=== PATIENT | male | born 1950 | race African-American/Black ===

== ENCOUNTER 2016-12-31 03:01 | Inpatient (IN) | payer OTHER ==
[~2016-12-31] VITALS: Ht 185.4 cm; Wt 67.5 kg
[~2016-12-31 03:01] MED LIST: ADV250 IH; ALBU8.5H3 IH; CALC600T95 PO; CARV3 PO; ENAL5 PO; FAMO20 PO; FISH1CAP8 PO; IBUP200C93 PO; OMEP20 PO; PRAV20TA4 PO; PRED5 PO
[2016-12-31] MEDS ORDERED: MethylPREDNISolone SOD SUCC 125 MG/2 ML VIAL IVP ONE (03:15)
[2016-12-31] MEDS ORDERED: ACETAMINOPHEN 500 MG TABLET PO ONE (03:15)
[2016-12-31 03:25] LABS: BASOPHILS % (AUTO) 0.8 % (0.0-2.0); EOSINOPHILS % (AUTO) 5.7 % (1.0-6.0); HEMATOCRIT 40.7 % (41-53); LYMPHOCYTES # (AUTO) 2.1 K/uL (1.0-4.8); LYMPHOCYTES % (AUTO) 34.9 % (22.0-44.0); MEAN CORPUSCULAR HEMOGLOBIN 29.4 pg (26.0-34.0); MEAN CORPUSCULAR VOLUME 92 fL (80-100); MONOCYTES # (AUTO) 0.7 K/uL (0.1-1.0); MONOCYTES % (AUTO) 11.6 % (2.0-9.0); NEUTROPHILS # (AUTO) 2.8 K/uL (1.8-7.7); PLATELET COUNT (AUTO) 239 K/uL (150-450); RED BLOOD CELL COUNT(AUTO) 4.42 MIL/uL (4.50-5.90); RED CELL DISTRIBUTION WIDTH 14.9 % (11.5-14.5); WHITE BLOOD COUNT (AUTO) 5.9 K/uL (4.5-11.0)
[2016-12-31 03:39] LABS: ANION GAP 7 mmol/L (8-16); CALCIUM, TOTAL 8.6 mg/dL (8.8-10.5); CARBON DIOXIDE 31 mmol/L (22-29); CHLORIDE 104 mmol/L (98-107); CREATININE 1.29 mg/dL (0.60-1.30); GLOMERULAR FILTR. RATE CALC > 60 mL/min (>60); POTASSIUM 3.6 mmol/L (3.5-5.1); SODIUM SERUM 142 mmol/L (136-145); UREA NITROGEN, BLOOD 16 mg/dL (7-18)
[2016-12-31 03:43] LABS: B-TYPE NATRIURETIC PEPTIDE 6 pg/mL (0-100)
[2016-12-31] MEDS ORDERED: ALBUTEROL SULFATE 2.5 MG/0.5 ML NEB SOLUTION NEB ONE (03:45)
[2016-12-31] MEDS ORDERED: IPRATROPIUM BROMIDE 0.5 MG/2.5 ML NEB SOLUTION NEB ONE (03:45)
[2016-12-31] MEDS ORDERED: 0.9% SODIUM CHLORIDE 5 ML NEB SOLUTION NEB ONE (03:47)
[2016-12-31 04:05] LABS: ALANINE AMINOTRANSFERASE 30 U/L (12-78); ALBUMIN 3.4 g/dL (3.4-5.0); ASPARTATE AMINOTRANSFERASE 33 U/L (15-37); BILIRUBIN,TOTAL 0.3 mg/dL (0.1-1.0); CREATINE KINASE MB 6.1 ng/mL (0-5); CREATINE KINASE, TOTAL 278 U/L (39-308); TOTAL PROTEIN, SERUM 7.1 g/dL (6.4-8.2)
[2016-12-31 04:30] LABS: INFLUENZA TYPE B NEGATIVE FOR TYPE B (NEGATIVE)
[2016-12-31] MEDS ORDERED: NITROGLYCERIN 2% (1 GM=INCH) PACKET TP ONE (04:30)
[2016-12-31] MEDS ORDERED: ASPIRIN 81 MG CHEWABLE TABLET PO ONE (04:30)
[2016-12-31] MEDS ORDERED: CefTRIAXone 1 GM/DEXTROSE 50 ML IV ONE (05:00)
[2016-12-31] MEDS ORDERED: AZITHROMYCIN 500 MG/NS 250 ML IV ONE (05:00)
[2016-12-31 08:20] VITALS: BP 119/92
[2016-12-31 11:57] VITALS: BP 116/88
[2016-12-31] MEDS ORDERED: PredniSONE 5 MG TABLET PO SCH (12:00)
[2016-12-31] MEDS ORDERED: ALBUTEROL SULFATE 2.5 MG/0.5 ML NEB SOLUTION NEB PRN (12:15)
[2016-12-31] MEDS ORDERED: IPRATROPIUM BROMIDE 0.5 MG/2.5 ML NEB SOLUTION NEB PRN (12:15)
[2016-12-31] MEDS: ENALAPRIL MALEATE 5 MG TABLET PO SCH (14:06)
[2016-12-31] MEDS: FISH OIL/OMEGA-3 FATTY ACIDS 500 MG CAPSULE PO SCH (14:06)
[2016-12-31] MEDS: ASPIRIN 81 MG CHEWABLE TABLET PO SCH (14:06)
[2016-12-31] MEDS: NITROGLYCERIN 2% (1 GM=INCH) PACKET TP SCH ×2 (14:07→18:55)
[2016-12-31] MEDS: PRAVASTATIN SODIUM 20 MG TABLET PO SCH (14:07)
[2016-12-31] MEDS: FAMOTIDINE 20 MG TABLET PO SCH (14:07)
[2016-12-31] MEDS: CARVEDILOL 3.125 MG TABLET PO SCH ×2 (14:07→21:00)
[2016-12-31] MEDS: IPRATROPIUM BROMIDE 0.5 MG/2.5 ML NEB SOLUTION NEB SCH ×2 (14:19→19:32)
[2016-12-31] MEDS: ALBUTEROL SULFATE 2.5 MG/0.5 ML NEB SOLUTION NEB SCH ×2 (14:20→19:32)
[2016-12-31 15:38] VITALS: BP 101/67
[2016-12-31] MEDS: MethylPREDNISolone SOD SUCC 125 MG/2 ML VIAL IVP SCH (16:40)
[2016-12-31 19:31] VITALS: BP 96/61
[2016-12-31 23:29] VITALS: BP 98/56
[2017-01-01] MEDS: MethylPREDNISolone SOD SUCC 125 MG/2 ML VIAL IVP SCH ×2 (00:14→08:29)
[2017-01-01] MEDS: ALBUTEROL SULFATE 2.5 MG/0.5 ML NEB SOLUTION NEB SCH ×4 (02:16→14:20)
[2017-01-01] MEDS: IPRATROPIUM BROMIDE 0.5 MG/2.5 ML NEB SOLUTION NEB SCH ×4 (02:16→14:20)
[2017-01-01 04:29] VITALS: BP 118/75
[2017-01-01] MEDS: NITROGLYCERIN 2% (1 GM=INCH) PACKET TP SCH ×3 (05:49→12:39)
[2017-01-01 07:19] VITALS: BP 117/62
[2017-01-01] MEDS: FISH OIL/OMEGA-3 FATTY ACIDS 500 MG CAPSULE PO SCH (08:28)
[2017-01-01] MEDS: CARVEDILOL 3.125 MG TABLET PO SCH (08:29)
[2017-01-01] MEDS: FAMOTIDINE 20 MG TABLET PO SCH (08:29)
[2017-01-01] MEDS: ENALAPRIL MALEATE 5 MG TABLET PO SCH (08:29)
[2017-01-01] MEDS: ASPIRIN 81 MG CHEWABLE TABLET PO SCH (08:29)
[2017-01-01] MEDS: PRAVASTATIN SODIUM 20 MG TABLET PO SCH (08:29)
[2017-01-01 11:03] VITALS: BP 130/68
[2017-01-01] MEDS ORDERED: PRED20 PO (14:04)
== END 2017-01-01 14:30 | disposition home or self-care (01) | DRG 140 ==
LOC: EMS 03:02 → 5N 05:44
PROVIDERS: ADMIT Internal Medicine; ATTEND Internal Medicine
DX: J44.1 Chronic obstructive pulmonary disease with (acute) exacerbation (principal); I11.0 Hypertensive heart disease with heart failure; Z86.74 Personal history of sudden cardiac arrest; I50.32 Chronic diastolic (congestive) heart failure; K21.9 Gastro-esophageal reflux disease without esophagitis; D64.9 Anemia, unspecified; F17.210 Nicotine dependence, cigarettes, uncomplicated; R07.9 Chest pain, unspecified; J45.909 Unspecified asthma, uncomplicated; I25.10 Atherosclerotic heart disease of native coronary artery without angina pectoris; I25.2 Old myocardial infarction; Z95.5 Presence of coronary angioplasty implant and graft; Z91.018 Allergy to other foods; Z79.899 Other long term (current) drug therapy; Z79.51 Long term (current) use of inhaled steroids; Z79.1 Long term (current) use of non-steroidal anti-inflammatories (NSAID); Z71.6 Tobacco abuse counseling
CPT/HCPCS: 87040; 87804; 93005; 93306; 94640; 96365; 96368; 96375; 99285; 99406; J0456; J0696; J2930

== ENCOUNTER 2017-01-28 17:38 | Emergency (ER) | payer OTHER ==
[~2017-01-28] VITALS: Ht 193 cm; Wt 63.6 kg
[~2017-01-28 17:38] MED LIST changes: +PRED20 PO; -PRED5 PO
[2017-01-28] MEDS ORDERED: ALBUTEROL SULFATE 5 MG/ML 20 ML NEB SOLN [BULK] NEB ONE (18:10)
[2017-01-28] MEDS ORDERED: MethylPREDNISolone SOD SUCC 125 MG/2 ML VIAL IVP ONE (18:15)
[2017-01-28] MEDS ORDERED: IPRATROPIUM BROMIDE 0.5 MG/2.5 ML NEB SOLUTION NEB ONE (18:15)
[2017-01-28 18:23] LABS: HEMATOCRIT 41.7 % (41-53); HEMOGLOBIN 13.3 g/dL (13.5-17.5); MEAN CORPUSCULAR HGB CONC 31.8 G/dL (31.0-37.0); MEAN CORPUSCULAR VOLUME 91 fL (80-100); PLATELET COUNT (AUTO) 436 K/uL (150-450); RED BLOOD CELL COUNT(AUTO) 4.58 MIL/uL (4.50-5.90); RED CELL DISTRIBUTION WIDTH 15.1 % (11.5-14.5); WHITE BLOOD COUNT (AUTO) 3.9 K/uL (4.5-11.0)
[2017-01-28 18:29] LABS: ANION GAP 6 mmol/L (8-16); CALCIUM, TOTAL 8.5 mg/dL (8.8-10.5); CARBON DIOXIDE 33 mmol/L (22-29); CHLORIDE 105 mmol/L (98-107); CREATININE 1.33 mg/dL (0.60-1.30); GLOMERULAR FILTR. RATE CALC > 60 mL/min (>60); POTASSIUM 3.7 mmol/L (3.5-5.1); SODIUM SERUM 144 mmol/L (136-145); UREA NITROGEN, BLOOD 13 mg/dL (7-18)
[2017-01-28 18:33] LABS: PROTHROMBIN TIME 10.7 SEC (9.4-11.6)
[2017-01-28 18:52] LABS: BASOPHILS % (MANUAL) 1 % (0-2); EOSINOPHILS % (MANUAL) 15 % (1-6); LYMPHOCYTES % (MANUAL) 44 % (22-44); REACTIVE LYMPHOCYTES 3 % (0-0); TOTAL CELLS COUNTED 100
[2017-01-28 18:53] LABS: RBC MORPHOLOGY COMMENT ABNORMAL RBC MORPH
[2017-01-28 18:55] LABS: ALANINE AMINOTRANSFERASE 28 U/L (12-78); ALBUMIN 3.3 g/dL (3.4-5.0); ASPARTATE AMINOTRANSFERASE 27 U/L (15-37); BILIRUBIN,TOTAL 0.3 mg/dL (0.1-1.0); CREATINE KINASE MB 3.6 ng/mL (0-5); CREATINE KINASE, TOTAL 157 U/L (39-308); TOTAL PROTEIN, SERUM 7.1 g/dL (6.4-8.2)
[2017-01-28 18:56] LABS: B-TYPE NATRIURETIC PEPTIDE 9 pg/mL (0-100)
[2017-01-28] MEDS ORDERED: 0.9% SODIUM CHLORIDE 15 ML NEB SOLUTION NEB ONE (19:20)
[2017-01-28 20:08] VITALS: BP 118/70
== END 2017-01-28 20:38 | disposition home or self-care (01) ==
LOC: EMS 17:39
DX: J44.9 Chronic obstructive pulmonary disease, unspecified (principal); J45.909 Unspecified asthma, uncomplicated; I25.10 Atherosclerotic heart disease of native coronary artery without angina pectoris; I25.2 Old myocardial infarction; I10 Essential (primary) hypertension; F17.210 Nicotine dependence, cigarettes, uncomplicated; Z91.018 Allergy to other foods
CPT/HCPCS: 71010; 80053; 82550; 82553; 83880; 84484; 85025; 85610; 85730; 93005; 94644; 96374; 99285; J2930; J7611

== ENCOUNTER 2017-03-09 02:23 | Inpatient (IN) | payer MEDICARE, OTHER ==
[~2017-03-09] VITALS: Ht 193 cm; Wt 55.4 kg
[2017-03-09] MEDS ORDERED: ALBUTEROL SULFATE 5 MG/ML 20 ML NEB SOLN [BULK] NEB ONE (02:30)
[2017-03-09] MEDS ORDERED: CefTRIAXone 1 GM/DEXTROSE 50 ML IV ONE (02:30)
[2017-03-09] MEDS ORDERED: MethylPREDNISolone SOD SUCC 125 MG/2 ML VIAL IVP ONE (02:30)
[2017-03-09] MEDS ORDERED: IPRATROPIUM BROMIDE 0.5 MG/2.5 ML NEB SOLUTION NEB ONE (02:30)
[2017-03-09] MEDS ORDERED: FAMO20 PO (02:33)
[2017-03-09] MEDS ORDERED: OMEG-76 (02:33)
[2017-03-09] MEDS ORDERED: ESOM20CA31 PO (02:33)
[2017-03-09] MEDS ORDERED: MethylPREDNISolone SOD SUCC 125 MG/2 ML VIAL ONE (02:34)
[2017-03-09] MEDS ORDERED: 0.9% SODIUM CHLORIDE 15 ML NEB SOLUTION NEB ONE (02:35)
[2017-03-09 03:00] LABS: ABG A-A DIFF O2 87.5 mmHg (10-20.0); ABG BASE EXCESS 3.7 mmol/L (-2.0-3.0); ABG HCO3 27.1 mmol/L (22.0-26.0); ABG OXYHEMOGLOBIN 93.2 % (94.0-100.0); ABG PCO2 51 mmHg (35-45); ABG PH 7.375 (7.35-7.450); TEMPERATURE, FAHRENHEIT, BG 99.5 FAHREN (96.0-98.6)
[2017-03-09 03:01] LABS: ALLEN TEST, BLOOD GAS Positive
[2017-03-09 03:02] LABS: IPAP, BG 14 cm H2O
[2017-03-09 03:15] LABS: ANION GAP 2 mmol/L (8-16); CALCIUM, TOTAL 8.8 mg/dL (8.8-10.5); CARBON DIOXIDE 34 mmol/L (22-29); CHLORIDE 102 mmol/L (98-107); CREATININE 1.33 mg/dL (0.60-1.30); GLOMERULAR FILTR. RATE CALC > 60 mL/min (>60); POTASSIUM 4.1 mmol/L (3.5-5.1); SODIUM SERUM 138 mmol/L (136-145); UREA NITROGEN, BLOOD 10 mg/dL (7-18)
[2017-03-09 03:17] LABS: BASOPHILS % (AUTO) 1.3 % (0.0-2.0); EOSINOPHILS % (AUTO) 8.8 % (1.0-6.0); HEMATOCRIT 39.2 % (41-53); HEMOGLOBIN 12.5 g/dL (13.5-17.5); LYMPHOCYTES % (AUTO) 35.7 % (22.0-44.0); MEAN CORPUSCULAR HEMOGLOBIN 28.1 pg (26.0-34.0); MEAN CORPUSCULAR HGB CONC 31.9 G/dL (31.0-37.0); MEAN CORPUSCULAR VOLUME 88 fL (80-100); MONOCYTES # (AUTO) 0.9 K/uL (0.1-1.0); MONOCYTES % (AUTO) 16.1 % (2.0-9.0); NEUTROPHILS # (AUTO) 2.1 K/uL (1.8-7.7); NEUTROPHILS % (AUTO) 38.1 % (40.0-70.0); PLATELET COUNT (AUTO) 256 K/uL (150-450); RED BLOOD CELL COUNT(AUTO) 4.45 MIL/uL (4.50-5.90); RED CELL DISTRIBUTION WIDTH 15.7 % (11.5-14.5); WHITE BLOOD COUNT (AUTO) 5.5 K/uL (4.5-11.0)
[2017-03-09 03:20] LABS: ALANINE AMINOTRANSFERASE 22 U/L (12-78); ALBUMIN 3.4 g/dL (3.4-5.0); ASPARTATE AMINOTRANSFERASE 25 U/L (15-37); BILIRUBIN,TOTAL 0.4 mg/dL (0.1-1.0)
[2017-03-09 03:25] LABS: LACTIC ACID 0.5 mmol/L (0.4-2.0)
[2017-03-09 03:32] LABS: B-TYPE NATRIURETIC PEPTIDE 19 pg/mL (0-100)
[2017-03-09 03:49] LABS: RBC MORPHOLOGY COMMENT ABNORMAL RBC MORPH
[2017-03-09] MEDS ORDERED: ONDANSETRON HCL 4 MG/2 ML VIAL IVP PRN ×2 (04:00→14:00)
[2017-03-09] MEDS ORDERED: 0.9% SODIUM CHLORIDE 10 ML SYRINGE IVP PRN ×2 (04:00→14:00)
[2017-03-09] MEDS ORDERED: ACETAMINOPHEN 325 MG TABLET PO PRN ×2 (04:00→14:00)
[2017-03-09 04:02] LABS: INFLUENZA TYPE B NEGATIVE FOR TYPE B (NEGATIVE)
[2017-03-09 04:32] VITALS: BP 118/75
[2017-03-09] MEDS ORDERED: PNEUMOCOCCAL VACCINE POLYVALENT 0.5 ML VIAL [PPSV23] IM ONE (06:15)
[2017-03-09] MEDS: ALBUTEROL SULFATE 2.5 MG/0.5 ML NEB SOLUTION NEB SCH ×4 (07:00→19:40)
[2017-03-09] MEDS: IPRATROPIUM BROMIDE 0.5 MG/2.5 ML NEB SOLUTION NEB SCH ×4 (07:00→19:40)
[2017-03-09] MEDS ORDERED: OXYGEN THERAPY IH SCH (08:00)
[2017-03-09 08:09] VITALS: BP 127/86
[2017-03-09 11:26] VITALS: BP 155/94
[2017-03-09] MEDS ORDERED: OxyCODONE HCL/ACETAMINOPHEN 5-325 MG TABLET PO PRN (14:00)
[2017-03-09] MEDS ORDERED: MAGNESIUM HYDROXIDE SUSPENSION 30 ML UDCUP PO PRN (14:00)
[2017-03-09] MEDS: DOCUSATE SODIUM 100 MG CAPSULE PO SCH ×2 (14:10→20:33)
[2017-03-09] MEDS: CARVEDILOL 3.125 MG TABLET PO SCH ×2 (14:10→20:33)
[2017-03-09] MEDS: PRAVASTATIN SODIUM 20 MG TABLET PO SCH (14:11)
[2017-03-09 15:33] VITALS: BP 125/84
[2017-03-09] MEDS ORDERED: MethylPREDNISolone SOD SUCC 125 MG/2 ML VIAL IVP SCH (16:00)
[2017-03-09] MEDS: PANTOPRAZOLE SODIUM 40 MG/VIAL IVP SCH (16:04)
[2017-03-09] MEDS: ENALAPRIL MALEATE 5 MG TABLET PO SCH (16:04)
[2017-03-09] MEDS: FISH OIL/OMEGA-3 FATTY ACIDS 500 MG CAPSULE PO SCH (16:05)
[2017-03-09] MEDS: CALCIUM CARBONATE 648 MG TABLET PO SCH (16:05)
[2017-03-09 19:44] VITALS: BP 123/76
[2017-03-09] MEDS ORDERED: SODIUM CHLORIDE 0.9% 500 ML IV ONE (20:10)
[2017-03-09] MEDS: CefTRIAXone 1 GM/DEXTROSE 50 ML IV SCH (22:10)
[2017-03-09] MEDS: ALBUTEROL SULFATE 2.5 MG/0.5 ML NEB SOLUTION NEB PRN (23:22)
[2017-03-09] MEDS: IPRATROPIUM BROMIDE 0.5 MG/2.5 ML NEB SOLUTION NEB PRN (23:22)
[2017-03-10] VITALS (7 sets, daily range): BP systolic 113–130; BP diastolic 53–76
[2017-03-10] MEDS: MethylPREDNISolone SOD SUCC 125 MG/2 ML VIAL IVP SCH ×5 (00:19→23:12)
[2017-03-10] MEDS: IPRATROPIUM BROMIDE 0.5 MG/2.5 ML NEB SOLUTION NEB PRN (03:36)
[2017-03-10] MEDS: ALBUTEROL SULFATE 2.5 MG/0.5 ML NEB SOLUTION NEB PRN (03:36)
[2017-03-10] MEDS: OxyCODONE HCL/ACETAMINOPHEN 5-325 MG TABLET PO PRN (06:31)
[2017-03-10 07:19] LABS: BASOPHILS # (AUTO) 0.02 K/uL (0.00-0.20); BASOPHILS % (AUTO) 0.5 % (0.0-2.0); EOSINOPHILS % (AUTO) 0.07 % (1.0-6.0); HEMATOCRIT 40.9 % (41-53); HEMOGLOBIN 13.1 g/dL (13.5-17.5); LYMPHOCYTES # (AUTO) 0.6 K/uL (1.0-4.8); MEAN CORPUSCULAR HGB CONC 32.1 G/dL (31.0-37.0); MEAN CORPUSCULAR VOLUME 90 fL (80-100); MONOCYTES # (AUTO) 0.1 K/uL (0.1-1.0); NEUTROPHILS # (AUTO) 2.9 K/uL (1.8-7.7); NEUTROPHILS % (AUTO) 81.4 % (40.0-70.0); PLATELET COUNT (AUTO) 263 K/uL (150-450); RED BLOOD CELL COUNT(AUTO) 4.53 MIL/uL (4.50-5.90); WHITE BLOOD COUNT (AUTO) 3.6 K/uL (4.5-11.0)
[2017-03-10 08:00] LABS: ANION GAP 9 mmol/L (8-16); CALCIUM, TOTAL 8.9 mg/dL (8.8-10.5); CARBON DIOXIDE 27 mmol/L (22-29); CHLORIDE 103 mmol/L (98-107); CREATININE 1.22 mg/dL (0.60-1.30); GLOMERULAR FILTR. RATE CALC > 60 mL/min (>60); POTASSIUM 4.6 mmol/L (3.5-5.1); SODIUM SERUM 139 mmol/L (136-145); UREA NITROGEN, BLOOD 13 mg/dL (7-18)
[2017-03-10] MEDS: PANTOPRAZOLE SODIUM 40 MG/VIAL IVP SCH (09:06)
[2017-03-10] MEDS: FISH OIL/OMEGA-3 FATTY ACIDS 500 MG CAPSULE PO SCH (09:07)
[2017-03-10] MEDS: PRAVASTATIN SODIUM 20 MG TABLET PO SCH (09:08)
[2017-03-10] MEDS: CALCIUM CARBONATE 648 MG TABLET PO SCH (09:08)
[2017-03-10] MEDS: CARVEDILOL 3.125 MG TABLET PO SCH ×2 (09:08→20:58)
[2017-03-10] MEDS: ENALAPRIL MALEATE 5 MG TABLET PO SCH (09:08)
[2017-03-10] MEDS: DOCUSATE SODIUM 100 MG CAPSULE PO SCH ×2 (09:09→20:58)
[2017-03-10 10:10] LABS: RBC MORPHOLOGY COMMENT ABNORMAL RBC MORPH
[2017-03-10] MEDS: ALBUTEROL SULFATE 2.5 MG/0.5 ML NEB SOLUTION NEB SCH ×3 (15:16→23:44)
[2017-03-10] MEDS: IPRATROPIUM BROMIDE 0.5 MG/2.5 ML NEB SOLUTION NEB SCH ×3 (15:16→23:44)
[2017-03-10] MEDS: CefTRIAXone 1 GM/DEXTROSE 50 ML IV SCH (21:00)
[2017-03-11] MEDS: ALBUTEROL SULFATE 2.5 MG/0.5 ML NEB SOLUTION NEB SCH ×6 (03:06→23:18)
[2017-03-11] MEDS: IPRATROPIUM BROMIDE 0.5 MG/2.5 ML NEB SOLUTION NEB SCH ×6 (03:06→23:18)
[2017-03-11 04:27] VITALS: BP 115/70
[2017-03-11] MEDS: MethylPREDNISolone SOD SUCC 125 MG/2 ML VIAL IVP SCH ×3 (05:53→18:08)
[2017-03-11] MEDS: OxyCODONE HCL/ACETAMINOPHEN 5-325 MG TABLET PO PRN ×2 (05:53→20:24)
[2017-03-11 07:13] VITALS: BP 114/73
[2017-03-11] MEDS: DOCUSATE SODIUM 100 MG CAPSULE PO SCH ×2 (09:02→20:18)
[2017-03-11] MEDS: CALCIUM CARBONATE 648 MG TABLET PO SCH (09:02)
[2017-03-11] MEDS: PANTOPRAZOLE SODIUM 40 MG/VIAL IVP SCH (09:02)
[2017-03-11] MEDS: ENALAPRIL MALEATE 5 MG TABLET PO SCH (09:02)
[2017-03-11] MEDS: FISH OIL/OMEGA-3 FATTY ACIDS 500 MG CAPSULE PO SCH (09:02)
[2017-03-11] MEDS: PRAVASTATIN SODIUM 20 MG TABLET PO SCH (09:02)
[2017-03-11] MEDS: CARVEDILOL 3.125 MG TABLET PO SCH ×2 (09:04→20:18)
[2017-03-11 11:45] VITALS: BP 115/78
[2017-03-11 15:59] VITALS: BP 121/81
[2017-03-11 19:17] VITALS: BP 116/68
[2017-03-11] MEDS: CefTRIAXone 1 GM/DEXTROSE 50 ML IV SCH (22:04)
[2017-03-11 23:34] VITALS: BP 117/71
[2017-03-12] MEDS: MethylPREDNISolone SOD SUCC 125 MG/2 ML VIAL IVP SCH ×4 (00:02→18:00)
[2017-03-12] MEDS: IPRATROPIUM BROMIDE 0.5 MG/2.5 ML NEB SOLUTION NEB SCH ×5 (03:25→19:00)
[2017-03-12] MEDS: ALBUTEROL SULFATE 2.5 MG/0.5 ML NEB SOLUTION NEB SCH ×5 (03:25→19:00)
[2017-03-12 04:48] VITALS: BP 117/72
[2017-03-12 07:43] VITALS: BP 125/76
[2017-03-12] MEDS: DOCUSATE SODIUM 100 MG CAPSULE PO SCH (08:56)
[2017-03-12] MEDS: ENALAPRIL MALEATE 5 MG TABLET PO SCH (08:56)
[2017-03-12] MEDS: CALCIUM CARBONATE 648 MG TABLET PO SCH (08:56)
[2017-03-12] MEDS: FISH OIL/OMEGA-3 FATTY ACIDS 500 MG CAPSULE PO SCH (08:56)
[2017-03-12] MEDS: PANTOPRAZOLE SODIUM 40 MG/VIAL IVP SCH (08:56)
[2017-03-12] MEDS: PRAVASTATIN SODIUM 20 MG TABLET PO SCH (08:56)
[2017-03-12] MEDS: CARVEDILOL 3.125 MG TABLET PO SCH (08:56)
[2017-03-12 11:30] VITALS: BP 120/75
[2017-03-12] MEDS ORDERED: PredniSONE 20 MG TABLET PO ONE (13:30)
[2017-03-12] MEDS ORDERED: PRED5 PO (13:56)
[2017-03-12 14:25] LABS: ABG A-A DIFF O2 55.9 mmHg (10-20.0); ABG BASE EXCESS 1.5 mmol/L (-2.0-3.0); ABG HCO3 26.1 mmol/L (22.0-26.0); ABG OXYHEMOGLOBIN 88.7 % (94.0-100.0); ABG PCO2 33 mmHg (35-45); ABG PH 7.497 (7.35-7.450); TEMPERATURE, FAHRENHEIT, BG 97.8 FAHREN (96.0-98.6)
[2017-03-12 14:26] LABS: ALLEN TEST, BLOOD GAS Positive
[2017-03-12 15:24] VITALS: BP 118/73
== END 2017-03-12 19:10 | disposition home or self-care (01) | DRG 189 ==
LOC: EMS 02:24 → 5N 04:04
PROVIDERS: ADMIT Internal Medicine; ATTEND Internal Medicine
PROC: 5A09457 Assistance with Respiratory Ventilation, 24-96 Consecutive Hours, Continuous Positive Airway Pressure (ICD-10-PCS; principal; 2017-03-09)
PROC: 3E0234Z Introduction of Serum, Toxoid and Vaccine into Muscle, Percutaneous Approach (ICD-10-PCS; 2017-03-09)
DX: J96.01 Acute respiratory failure with hypoxia (principal); J44.1 Chronic obstructive pulmonary disease with (acute) exacerbation; R64 Cachexia; Z68.1 Body mass index [BMI] 19.9 or less, adult; E78.00 Pure hypercholesterolemia, unspecified; E78.5 Hyperlipidemia, unspecified; J40 Bronchitis, not specified as acute or chronic; I25.10 Atherosclerotic heart disease of native coronary artery without angina pectoris; F17.210 Nicotine dependence, cigarettes, uncomplicated; I11.0 Hypertensive heart disease with heart failure; I50.9 Heart failure, unspecified; J11.1 Influenza due to unidentified influenza virus with other respiratory manifestations; F12.90 Cannabis use, unspecified, uncomplicated; Z91.02 Food additives allergy status; I25.2 Old myocardial infarction; Z86.74 Personal history of sudden cardiac arrest; Z23 Encounter for immunization
CPT/HCPCS: 82805; 83605; 87040; 87804; 90471; 93005; 94640; 94644; 94660; 96365; 96375; 99291; C9113; J0696; J2930; J7040

== ENCOUNTER 2017-06-13 18:12 | Emergency (ER) | payer MEDICARE, OTHER ==
[~2017-06-13] VITALS: Ht 188 cm; Wt 67.3 kg
[~2017-06-13 18:12] MED LIST changes: +ESOM20CA31 PO; -OMEP20 PO; -PRED20 PO; +PRED5 PO
[2017-06-13] MEDS ORDERED: METOCLOPRAMIDE HCL 5 MG/ML 2 ML VIAL IVP ONE (19:00)
[2017-06-13] MEDS ORDERED: ALBUTEROL SULFATE 5 MG/ML 20 ML NEB SOLN [BULK] NEB ONE (19:00)
[2017-06-13] MEDS ORDERED: MORPHINE SULFATE 4 MG/ML SYRINGE IVP ONE (19:00)
[2017-06-13] MEDS ORDERED: DEXAMETHASONE SOD PHOS 4 MG/ML 5 ML VIAL IVP ONE (19:00)
[2017-06-13 19:10] LABS: BASOPHILS % (AUTO) 0.5 % (0.0-2.0); EOSINOPHILS % (AUTO) 2.2 % (1.0-6.0); HEMATOCRIT 33.5 % (41-53); HEMOGLOBIN 11.2 g/dL (13.5-17.5); LYMPHOCYTES # (AUTO) 1.1 K/uL (1.0-4.8); LYMPHOCYTES % (AUTO) 11.3 % (22.0-44.0); MEAN CORPUSCULAR HEMOGLOBIN 28.9 pg (26.0-34.0); MEAN CORPUSCULAR HGB CONC 33.3 G/dL (31.0-37.0); MEAN CORPUSCULAR VOLUME 87 fL (80-100); MONOCYTES # (AUTO) 0.7 K/uL (0.1-1.0); NEUTROPHILS # (AUTO) 7.6 K/uL (1.8-7.7); PLATELET COUNT (AUTO) 310 K/uL (150-450); RED BLOOD CELL COUNT(AUTO) 3.86 MIL/uL (4.50-5.90); RED CELL DISTRIBUTION WIDTH 17.4 % (11.5-14.5); WHITE BLOOD COUNT (AUTO) 9.7 K/uL (4.5-11.0)
[2017-06-13] MEDS ORDERED: 0.9% SODIUM CHLORIDE 5 ML NEB SOLUTION NEB ONE (19:16)
[2017-06-13 19:18] LABS: ANION GAP 7 mmol/L (8-16); CALCIUM, TOTAL 9.4 mg/dL (8.8-10.5); CARBON DIOXIDE 30 mmol/L (22-29); CHLORIDE 105 mmol/L (98-107); CREATININE 1.36 mg/dL (0.60-1.30); GLOMERULAR FILTR. RATE CALC > 60 mL/min (>60); POTASSIUM 3.6 mmol/L (3.5-5.1); SODIUM SERUM 142 mmol/L (136-145); UREA NITROGEN, BLOOD 10 mg/dL (7-18)
[2017-06-13 19:24] LABS: ALANINE AMINOTRANSFERASE 25 U/L (12-78); ALBUMIN 3.5 g/dL (3.4-5.0); ASPARTATE AMINOTRANSFERASE 31 U/L (15-37); BILIRUBIN,TOTAL 0.2 mg/dL (0.1-1.0); TOTAL PROTEIN, SERUM 6.9 g/dL (6.4-8.2)
[2017-06-13 19:31] LABS: B-TYPE NATRIURETIC PEPTIDE 15 pg/mL (0-100); RBC MORPHOLOGY COMMENT ABNORMAL RBC MORPH
[2017-06-13] MEDS ORDERED: LORazepam 2 MG/ML VIAL IVP ONE (21:15)
[2017-06-13] MEDS ORDERED: MORPHINE SULFATE 2 MG/ML SYRINGE IVP ONE (21:15)
[2017-06-13 21:33] VITALS: BP 102/64
== END 2017-06-13 22:30 | disposition home or self-care (01) ==
LOC: EMS 18:16
DX: J44.9 Chronic obstructive pulmonary disease, unspecified (principal); J98.11 Atelectasis; I11.0 Hypertensive heart disease with heart failure; I50.9 Heart failure, unspecified; I25.10 Atherosclerotic heart disease of native coronary artery without angina pectoris; J45.909 Unspecified asthma, uncomplicated; J96.91 Respiratory failure, unspecified with hypoxia; I25.2 Old myocardial infarction; F17.210 Nicotine dependence, cigarettes, uncomplicated; F12.90 Cannabis use, unspecified, uncomplicated; Z91.19 Patient's noncompliance with other medical treatment and regimen; Z91.018 Allergy to other foods
CPT/HCPCS: 36415; 71010; 80053; 83690; 83880; 84484; 85025; 93005; 94640; 96374; 96375; 96376; 99285; J1100; J2060; J2270 ×2; J2765

== ENCOUNTER 2017-11-10 18:36 | Emergency (ER) | payer MEDICARE, OTHER ==
[~2017-11-10] VITALS: Ht 193 cm; Wt 61.4 kg
[~2017-11-10 18:36] MED LIST changes: +CALC600T12 PO; -CALC600T95 PO; -PRED5 PO
[2017-11-10] MEDS ORDERED: ACETAMINOPHEN 500 MG TABLET PO ONE (20:15)
[2017-11-10 21:09] LABS: INFLUENZA TYPE A NEGATIVE FOR TYPE A (NEGATIVE)
[2017-11-10 21:10] LABS: INFLUENZA TYPE B NEGATIVE FOR TYPE B (NEGATIVE)
[2017-11-10 21:15] VITALS: BP 138/82
== END 2017-11-10 21:55 | disposition home or self-care (01) ==
LOC: EMS 18:38
DX: J18.9 Pneumonia, unspecified organism (principal); J45.909 Unspecified asthma, uncomplicated; I11.0 Hypertensive heart disease with heart failure; I50.9 Heart failure, unspecified; J44.9 Chronic obstructive pulmonary disease, unspecified; I25.2 Old myocardial infarction; I25.10 Atherosclerotic heart disease of native coronary artery without angina pectoris; F17.210 Nicotine dependence, cigarettes, uncomplicated; F12.90 Cannabis use, unspecified, uncomplicated; Z91.018 Allergy to other foods
CPT/HCPCS: 87804; 93005; 99285

== ENCOUNTER 2018-01-18 11:33 | Emergency (ER) | payer MEDICARE, OTHER ==
[~2018-01-18] VITALS: Ht 193 cm; Wt 63.6 kg
[2018-01-18] MEDS ORDERED: ALBUTEROL SULFATE 5 MG/ML 20 ML NEB SOLN [BULK] NEB ONE (13:45)
[2018-01-18] MEDS ORDERED: IPRATROPIUM BROMIDE 0.5 MG/2.5 ML NEB SOLUTION NEB ONE (13:45)
[2018-01-18] MEDS ORDERED: DEXAMETHASONE SOD PHOS 4 MG/ML 5 ML VIAL IM ONE (14:45)
[2018-01-18 14:53] LABS: BASOPHILS % (AUTO) 1.2 % (0.0-2.0); EOSINOPHILS % (AUTO) 2.7 % (1.0-6.0); HEMATOCRIT 35.4 % (41-53); HEMOGLOBIN 11.8 g/dL (13.5-17.5); LYMPHOCYTES # (AUTO) 1.5 K/uL (1.0-4.8); LYMPHOCYTES % (AUTO) 25.1 % (22.0-44.0); MEAN CORPUSCULAR HGB CONC 33.3 G/dL (31.0-37.0); MEAN CORPUSCULAR VOLUME 90 fL (80-100); MONOCYTES # (AUTO) 0.6 K/uL (0.1-1.0); MONOCYTES % (AUTO) 9.4 % (2.0-9.0); NEUTROPHILS # (AUTO) 3.8 K/uL (1.8-7.7); NEUTROPHILS % (AUTO) 61.6 % (40.0-70.0); PLATELET COUNT (AUTO) 265 K/uL (150-450); RED BLOOD CELL COUNT(AUTO) 3.94 MIL/uL (4.50-5.90); RED CELL DISTRIBUTION WIDTH 15.4 % (11.5-14.5)
[2018-01-18 15:04] LABS: ANION GAP 7 mmol/L (8-16); CALCIUM, TOTAL 8.9 mg/dL (8.8-10.5); CARBON DIOXIDE 29 mmol/L (22-29); CHLORIDE 106 mmol/L (98-107); CREATININE 0.98 mg/dL (0.60-1.30); GLOMERULAR FILTR. RATE CALC > 60 mL/min (>60); GLUCOSE,RANDOM 89 mg/dL (70-110); POTASSIUM 3.9 mmol/L (3.5-5.1); SODIUM SERUM 142 mmol/L (136-145); UREA NITROGEN, BLOOD 14 mg/dL (7-18)
[2018-01-18 15:10] LABS: ALANINE AMINOTRANSFERASE 31 U/L (12-78); ALBUMIN 3.2 g/dL (3.4-5.0); ALKALINE PHOSPHATASE 69 U/L (46-116); ASPARTATE AMINOTRANSFERASE 29 U/L (15-37); BILIRUBIN,TOTAL 0.4 mg/dL (0.1-1.0); TOTAL PROTEIN, SERUM 6.5 g/dL (6.4-8.2)
[2018-01-18 15:37] VITALS: BP 130/78
== END 2018-01-18 16:38 | disposition home or self-care (01) ==
LOC: EMS 11:41
DX: J45.901 Unspecified asthma with (acute) exacerbation (principal); J44.1 Chronic obstructive pulmonary disease with (acute) exacerbation; F17.210 Nicotine dependence, cigarettes, uncomplicated; I11.0 Hypertensive heart disease with heart failure; I50.9 Heart failure, unspecified; I25.2 Old myocardial infarction; I25.10 Atherosclerotic heart disease of native coronary artery without angina pectoris; F12.90 Cannabis use, unspecified, uncomplicated; Z91.018 Allergy to other foods
CPT/HCPCS: 36415; 71046; 80053; 85025; 93005; 94644; 99285; 99407; J1100

== ENCOUNTER 2018-03-27 01:06 | Inpatient (IN) | payer MEDICARE, OTHER ==
[~2018-03-27] VITALS: Ht 188 cm; Wt 56.7 kg
[2018-03-27] MEDS ORDERED: 0.9% SODIUM CHLORIDE 10 ML SYRINGE IVP PRN (02:00)
[2018-03-27] MEDS ORDERED: ACETAMINOPHEN 325 MG TABLET PO PRN (02:00)
[2018-03-27] MEDS ORDERED: ONDANSETRON HCL 4 MG/2 ML VIAL IVP PRN (02:00)
[2018-03-27] MEDS ORDERED: CeFAZolin 1 GM/DEXTROSE 50 ML IV ONE (02:00)
[2018-03-27] MEDS ORDERED: CeFAZolin SODIUM 1 GM in DEXTROSE 5%-WATER 10 ML IV ONE (02:00)
[2018-03-27 02:25] LABS: BASOPHILS % (AUTO) 0.2 % (0.0-2.0); EOSINOPHILS % (AUTO) 0 % (1.0-6.0); HEMATOCRIT 34.5 % (41-53); HEMOGLOBIN 11.5 g/dL (13.5-17.5); LYMPHOCYTES # (AUTO) 0.8 K/uL (1.0-4.8); LYMPHOCYTES % (AUTO) 4.1 % (22.0-44.0); MEAN CORPUSCULAR HEMOGLOBIN 29.9 pg (26.0-34.0); MEAN CORPUSCULAR HGB CONC 33.4 G/dL (31.0-37.0); MEAN CORPUSCULAR VOLUME 90 fL (80-100); MONOCYTES # (AUTO) 2.4 K/uL (0.1-1.0); MONOCYTES % (AUTO) 12.8 % (2.0-9.0); NEUTROPHILS # (AUTO) 15.7 K/uL (1.8-7.7); NEUTROPHILS % (AUTO) 82.9 % (40.0-70.0); PLATELET COUNT (AUTO) 362 K/uL (150-450); RED BLOOD CELL COUNT(AUTO) 3.85 MIL/uL (4.50-5.90)
[2018-03-27 02:36] LABS: CALCIUM, TOTAL 8.6 mg/dL (8.8-10.5); CREATININE 1.5 mg/dL (0.60-1.30); POTASSIUM 3.7 mmol/L (3.5-5.1)
[2018-03-27 02:41] LABS: ALBUMIN 2.2 g/dL (3.4-5.0); BILIRUBIN,TOTAL 0.2 mg/dL (0.1-1.0)
[2018-03-27] MEDS ORDERED: AZITHROMYCIN 500 MG/NS 250 ML IV ONE (03:00)
[2018-03-27] MEDS ORDERED: 0.9% SODIUM CHLORIDE 5 ML NEB SOLUTION NEB ONE ×2 (03:51→07:47)
[2018-03-27] MEDS: ALBUTEROL SULFATE 2.5 MG/0.5 ML NEB SOLUTION NEB SCH ×2 (04:00→07:51)
[2018-03-27 04:10] VITALS: BP 107/65
[2018-03-27] MEDS ORDERED: -PHARMACY VACCINE NOTE- MISC ONE (05:15)
[2018-03-27 07:25] VITALS: BP 125/77
[2018-03-27] MEDS ORDERED: *CLINICAL-LEVOFLOXACIN IVPB DOSING CLINICAL ONE (09:15)
[2018-03-27] MEDS ORDERED: SODIUM CHLORIDE 0.9% 1,000 ML IV ONE (09:15)
[2018-03-27] MEDS ORDERED: MAGNESIUM HYDROXIDE SUSPENSION 30 ML UDCUP PO PRN (09:15)
[2018-03-27] MEDS ORDERED: LEVOFLOXACIN 500 MG/D5% WATER 100 ML IV ONE (10:00)
[2018-03-27 10:39] VITALS: BP 109/65
[2018-03-27 11:28] LABS: BASOPHILS % (AUTO) 0.3 % (0.0-2.0); EOSINOPHILS % (AUTO) 0.1 % (1.0-6.0); HEMATOCRIT 32.2 % (41-53); HEMOGLOBIN 10.9 g/dL (13.5-17.5); LYMPHOCYTES % (AUTO) 6.3 % (22.0-44.0); MEAN CORPUSCULAR HEMOGLOBIN 30.2 pg (26.0-34.0); MEAN CORPUSCULAR HGB CONC 33.7 G/dL (31.0-37.0); MEAN CORPUSCULAR VOLUME 90 fL (80-100); MONOCYTES # (AUTO) 2.2 K/uL (0.1-1.0); MONOCYTES % (AUTO) 14.7 % (2.0-9.0); NEUTROPHILS % (AUTO) 78.6 % (40.0-70.0); PLATELET COUNT (AUTO) 347 K/uL (150-450); RED BLOOD CELL COUNT(AUTO) 3.59 MIL/uL (4.50-5.90); RED CELL DISTRIBUTION WIDTH 14.8 % (11.5-14.5)
[2018-03-27 11:32] LABS: ANION GAP 4 mmol/L (8-16); CALCIUM, TOTAL 8.4 mg/dL (8.8-10.5); CARBON DIOXIDE 30 mmol/L (22-29); CHLORIDE 103 mmol/L (98-107); GLOMERULAR FILTR. RATE CALC > 60 mL/min (>60); GLUCOSE,RANDOM 122 mg/dL (70-110); POTASSIUM 3.8 mmol/L (3.5-5.1); SODIUM SERUM 137 mmol/L (136-145); UREA NITROGEN, BLOOD 18 mg/dL (7-18)
[2018-03-27] MEDS ORDERED: IOVERSOL 320 MG/ML 100 ML VIAL ONE (12:56)
[2018-03-27] MEDS: NICOTINE 14 MG/24 HOUR PATCH TD SCH (14:34)
[2018-03-27 15:24] VITALS: BP 132/72
[2018-03-27] MEDS: ACETAMINOPHEN 325 MG TABLET PO PRN (18:20)
[2018-03-27] MEDS: DOCUSATE SODIUM 100 MG CAPSULE PO SCH (20:20)
[2018-03-27] MEDS: HEPARIN SODIUM,PORCINE 5,000 UNITS/ML VIAL SQ SCH (20:20)
[2018-03-27 20:43] VITALS: BP 108/69
[2018-03-27] MEDS: IPRATROPIUM BROMIDE 0.5 MG/2.5 ML NEB SOLUTION NEB PRN ×2 (20:53→21:16)
[2018-03-27] MEDS: ALBUTEROL SULFATE 2.5 MG/0.5 ML NEB SOLUTION NEB PRN ×2 (20:53→21:16)
[2018-03-27] MEDS: BUDESONIDE 0.5 MG/2 ML NEB SOLUTION NEB SCH ×2 (20:53→21:16)
[2018-03-28] VITALS (7 sets, daily range): BP systolic 110–124; BP diastolic 59–77
[2018-03-28] MEDS: IPRATROPIUM BROMIDE 0.5 MG/2.5 ML NEB SOLUTION NEB PRN ×3 (04:08→20:02)
[2018-03-28] MEDS: ALBUTEROL SULFATE 2.5 MG/0.5 ML NEB SOLUTION NEB PRN ×3 (04:08→20:02)
[2018-03-28] MEDS: ACETAMINOPHEN 325 MG TABLET PO PRN (06:33)
[2018-03-28] MEDS: DOCUSATE SODIUM 100 MG CAPSULE PO SCH ×2 (09:00→20:44)
[2018-03-28] MEDS: HEPARIN SODIUM,PORCINE 5,000 UNITS/ML VIAL SQ SCH ×2 (09:13→20:44)
[2018-03-28] MEDS: PANTOPRAZOLE SODIUM 40 MG DR TABLET PO SCH (09:13)
[2018-03-28] MEDS: NICOTINE 14 MG/24 HOUR PATCH TD SCH (09:13)
[2018-03-28] MEDS: BUDESONIDE 0.5 MG/2 ML NEB SOLUTION NEB SCH ×2 (09:15→20:02)
[2018-03-28 09:36] LABS: BASOPHILS % (AUTO) 0.2 % (0.0-2.0); EOSINOPHILS % (AUTO) 0 % (1.0-6.0); HEMATOCRIT 31.9 % (41-53); HEMOGLOBIN 10.8 g/dL (13.5-17.5); LYMPHOCYTES # (AUTO) 0.7 K/uL (1.0-4.8); MEAN CORPUSCULAR HEMOGLOBIN 30.3 pg (26.0-34.0); MEAN CORPUSCULAR HGB CONC 33.9 G/dL (31.0-37.0); MEAN CORPUSCULAR VOLUME 89 fL (80-100); MONOCYTES % (AUTO) 11.8 % (2.0-9.0); NEUTROPHILS # (AUTO) 14.5 K/uL (1.8-7.7); PLATELET COUNT (AUTO) 364 K/uL (150-450); RED BLOOD CELL COUNT(AUTO) 3.57 MIL/uL (4.50-5.90); RED CELL DISTRIBUTION WIDTH 14.8 % (11.5-14.5)
[2018-03-28 09:47] LABS: ANION GAP 6 mmol/L (8-16); CALCIUM, TOTAL 8.2 mg/dL (8.8-10.5); CARBON DIOXIDE 28 mmol/L (22-29); CHLORIDE 102 mmol/L (98-107); CREATININE 1.16 mg/dL (0.60-1.30); GLOMERULAR FILTR. RATE CALC > 60 mL/min (>60); GLUCOSE,RANDOM 159 mg/dL (70-110); POTASSIUM 4.1 mmol/L (3.5-5.1); SODIUM SERUM 136 mmol/L (136-145); UREA NITROGEN, BLOOD 17 mg/dL (7-18)
[2018-03-28] MEDS ORDERED: LEVOFLOXACIN 500 MG/D5% WATER 100 ML IV SCH (13:00)
[2018-03-28] MEDS ORDERED: LEVOFLOXACIN 750 MG/D5% WATER 150 ML IV SCH (13:00)
[2018-03-28] MEDS: OxyCODONE HCL/ACETAMINOPHEN 5-325 MG TABLET PO PRN ×2 (14:15→23:18)
[2018-03-29 04:38] VITALS: BP 98/58
[2018-03-29 06:32] LABS: BASOPHILS % (AUTO) 0.3 % (0.0-2.0); EOSINOPHILS % (AUTO) 0.6 % (1.0-6.0); HEMATOCRIT 32.2 % (41-53); HEMOGLOBIN 10.9 g/dL (13.5-17.5); LYMPHOCYTES # (AUTO) 0.8 K/uL (1.0-4.8); LYMPHOCYTES % (AUTO) 5.6 % (22.0-44.0); MEAN CORPUSCULAR HEMOGLOBIN 30.2 pg (26.0-34.0); MEAN CORPUSCULAR VOLUME 89 fL (80-100); MONOCYTES # (AUTO) 1.9 K/uL (0.1-1.0); MONOCYTES % (AUTO) 12.8 % (2.0-9.0); NEUTROPHILS # (AUTO) 11.8 K/uL (1.8-7.7); NEUTROPHILS % (AUTO) 80.7 % (40.0-70.0); PLATELET COUNT (AUTO) 419 K/uL (150-450); RED BLOOD CELL COUNT(AUTO) 3.62 MIL/uL (4.50-5.90); RED CELL DISTRIBUTION WIDTH 14.8 % (11.5-14.5)
[2018-03-29 06:45] LABS: ANION GAP 4 mmol/L (8-16); CALCIUM, TOTAL 8.6 mg/dL (8.8-10.5); CARBON DIOXIDE 31 mmol/L (22-29); CHLORIDE 101 mmol/L (98-107); CREATININE 1.08 mg/dL (0.60-1.30); GLOMERULAR FILTR. RATE CALC > 60 mL/min (>60); GLUCOSE,RANDOM 80 mg/dL (70-110); POTASSIUM 3.6 mmol/L (3.5-5.1); SODIUM SERUM 136 mmol/L (136-145); UREA NITROGEN, BLOOD 17 mg/dL (7-18)
[2018-03-29 07:44] VITALS: BP 129/84
[2018-03-29] MEDS: BUDESONIDE 0.5 MG/2 ML NEB SOLUTION NEB SCH ×2 (08:02→20:36)
[2018-03-29] MEDS: HEPARIN SODIUM,PORCINE 5,000 UNITS/ML VIAL SQ SCH ×2 (08:36→20:21)
[2018-03-29] MEDS: AZITHROMYCIN 250 MG TABLET PO SCH (08:36)
[2018-03-29] MEDS: DOCUSATE SODIUM 100 MG CAPSULE PO SCH ×3 (08:36→20:49)
[2018-03-29] MEDS: PANTOPRAZOLE SODIUM 40 MG DR TABLET PO SCH (08:36)
[2018-03-29] MEDS: NICOTINE 14 MG/24 HOUR PATCH TD SCH (08:37)
[2018-03-29] MEDS: ACETAMINOPHEN 325 MG TABLET PO PRN ×2 (08:37→20:34)
[2018-03-29 11:24] VITALS: BP 122/69
[2018-03-29] MEDS: CefTRIAXone SODIUM 1 GM in DEXTROSE 5%-WATER 10 ML IV SCH (12:01)
[2018-03-29] MEDS: OxyCODONE HCL/ACETAMINOPHEN 5-325 MG TABLET PO PRN ×2 (14:06→23:31)
[2018-03-29 15:33] VITALS: BP 114/66
[2018-03-29 20:28] VITALS: BP 114/66
[2018-03-29] MEDS: ALBUTEROL SULFATE 2.5 MG/0.5 ML NEB SOLUTION NEB PRN (22:50)
[2018-03-29] MEDS: IPRATROPIUM BROMIDE 0.5 MG/2.5 ML NEB SOLUTION NEB PRN (22:50)
[2018-03-30] VITALS (7 sets, daily range): BP systolic 95–125; BP diastolic 50–65
[2018-03-30] MEDS: NICOTINE 14 MG/24 HOUR PATCH TD SCH (08:23)
[2018-03-30] MEDS: HEPARIN SODIUM,PORCINE 5,000 UNITS/ML VIAL SQ SCH ×2 (08:23→20:10)
[2018-03-30] MEDS: DOCUSATE SODIUM 100 MG CAPSULE PO SCH ×2 (08:23→20:05)
[2018-03-30] MEDS: AZITHROMYCIN 250 MG TABLET PO SCH (08:23)
[2018-03-30] MEDS: PANTOPRAZOLE SODIUM 40 MG DR TABLET PO SCH (08:24)
[2018-03-30] MEDS: ACETAMINOPHEN 325 MG TABLET PO PRN ×2 (08:24→19:31)
[2018-03-30] MEDS: ALBUTEROL SULFATE 2.5 MG/0.5 ML NEB SOLUTION NEB PRN ×2 (08:35→19:29)
[2018-03-30] MEDS: IPRATROPIUM BROMIDE 0.5 MG/2.5 ML NEB SOLUTION NEB PRN ×2 (08:35→19:28)
[2018-03-30] MEDS: BUDESONIDE 0.5 MG/2 ML NEB SOLUTION NEB SCH ×2 (08:35→19:29)
[2018-03-30] MEDS: CefTRIAXone SODIUM 1 GM in DEXTROSE 5%-WATER 10 ML IV SCH (12:22)
[2018-03-31 04:29] VITALS: BP 114/70
[2018-03-31 06:52] LABS: BASOPHILS % (AUTO) 0.8 % (0.0-2.0); EOSINOPHILS % (AUTO) 0.8 % (1.0-6.0); HEMATOCRIT 32.9 % (41-53); LYMPHOCYTES # (AUTO) 0.8 K/uL (1.0-4.8); LYMPHOCYTES % (AUTO) 6.6 % (22.0-44.0); MEAN CORPUSCULAR HEMOGLOBIN 29.9 pg (26.0-34.0); MEAN CORPUSCULAR HGB CONC 33.4 G/dL (31.0-37.0); MEAN CORPUSCULAR VOLUME 90 fL (80-100); MONOCYTES # (AUTO) 1.5 K/uL (0.1-1.0); MONOCYTES % (AUTO) 12.2 % (2.0-9.0); NEUTROPHILS # (AUTO) 9.8 K/uL (1.8-7.7); NEUTROPHILS % (AUTO) 79.6 % (40.0-70.0); PLATELET COUNT (AUTO) 517 K/uL (150-450); RED BLOOD CELL COUNT(AUTO) 3.67 MIL/uL (4.50-5.90)
[2018-03-31 07:24] LABS: ANION GAP 4 mmol/L (8-16); CALCIUM, TOTAL 8.6 mg/dL (8.8-10.5); CARBON DIOXIDE 32 mmol/L (22-29); CHLORIDE 101 mmol/L (98-107); CREATININE 0.96 mg/dL (0.60-1.30); GLOMERULAR FILTR. RATE CALC > 60 mL/min (>60); GLUCOSE,RANDOM 99 mg/dL (70-110); POTASSIUM 4.1 mmol/L (3.5-5.1); SODIUM SERUM 137 mmol/L (136-145); UREA NITROGEN, BLOOD 17 mg/dL (7-18)
[2018-03-31 07:25] VITALS: BP 109/60
[2018-03-31] MEDS: BUDESONIDE 0.5 MG/2 ML NEB SOLUTION NEB SCH ×2 (09:08→20:20)
[2018-03-31] MEDS: HEPARIN SODIUM,PORCINE 5,000 UNITS/ML VIAL SQ SCH ×2 (09:51→20:25)
[2018-03-31] MEDS: NICOTINE 14 MG/24 HOUR PATCH TD SCH (09:52)
[2018-03-31] MEDS: DOCUSATE SODIUM 100 MG CAPSULE PO SCH ×2 (09:53→20:24)
[2018-03-31] MEDS: AZITHROMYCIN 250 MG TABLET PO SCH (09:53)
[2018-03-31] MEDS: PANTOPRAZOLE SODIUM 40 MG DR TABLET PO SCH (09:53)
[2018-03-31 10:53] VITALS: BP 101/60
[2018-03-31 11:26] LABS: LEGIONELLA PNEUMO AG URINE Negative (Negative); ORGANISM ID Not indicated.; S PNEUMO SOURCE Urine; STREP PNEUMONIAE AG URINE Negative (Negative); STREP.PNEUMO BODY FLUID CULT. Not Indicated
[2018-03-31] MEDS: CefTRIAXone SODIUM 1 GM in DEXTROSE 5%-WATER 10 ML IV SCH (11:44)
[2018-03-31 15:20] VITALS: BP 106/64
[2018-03-31 18:02] LABS: HIV 1-2 SCREEN 4TH GEN W/RFLX Non Reactive (Non Reactive)
[2018-03-31 20:16] VITALS: BP 99/49
[2018-03-31] MEDS: OxyCODONE HCL/ACETAMINOPHEN 5-325 MG TABLET PO PRN (20:24)
[2018-04-01] MEDS: IPRATROPIUM BROMIDE 0.5 MG/2.5 ML NEB SOLUTION NEB PRN ×4 (00:08→21:01)
[2018-04-01] MEDS: ALBUTEROL SULFATE 2.5 MG/0.5 ML NEB SOLUTION NEB PRN ×4 (00:08→21:01)
[2018-04-01] MEDS: OxyCODONE HCL/ACETAMINOPHEN 5-325 MG TABLET PO PRN ×3 (00:25→19:33)
[2018-04-01 00:26] VITALS: BP 94/55
[2018-04-01 04:34] VITALS: BP 101/62
[2018-04-01 06:07] LABS: BASOPHILS % (AUTO) 0.9 % (0.0-2.0); EOSINOPHILS % (AUTO) 0.6 % (1.0-6.0); HEMATOCRIT 31.3 % (41-53); HEMOGLOBIN 10.7 g/dL (13.5-17.5); LYMPHOCYTES # (AUTO) 1.1 K/uL (1.0-4.8); LYMPHOCYTES % (AUTO) 9.2 % (22.0-44.0); MEAN CORPUSCULAR HEMOGLOBIN 30.7 pg (26.0-34.0); MEAN CORPUSCULAR HGB CONC 34.2 G/dL (31.0-37.0); MEAN CORPUSCULAR VOLUME 90 fL (80-100); MONOCYTES # (AUTO) 1.4 K/uL (0.1-1.0); MONOCYTES % (AUTO) 11.4 % (2.0-9.0); NEUTROPHILS # (AUTO) 9.5 K/uL (1.8-7.7); NEUTROPHILS % (AUTO) 77.9 % (40.0-70.0); PLATELET COUNT (AUTO) 540 K/uL (150-450); RED BLOOD CELL COUNT(AUTO) 3.49 MIL/uL (4.50-5.90); RED CELL DISTRIBUTION WIDTH 15.2 % (11.5-14.5)
[2018-04-01 07:45] VITALS: BP 99/54
[2018-04-01] MEDS: BUDESONIDE 0.5 MG/2 ML NEB SOLUTION NEB SCH ×2 (08:02→21:00)
[2018-04-01] MEDS: DOCUSATE SODIUM 100 MG CAPSULE PO SCH ×2 (09:00→19:33)
[2018-04-01] MEDS: HEPARIN SODIUM,PORCINE 5,000 UNITS/ML VIAL SQ SCH ×2 (09:00→19:32)
[2018-04-01] MEDS: PANTOPRAZOLE SODIUM 40 MG DR TABLET PO SCH ×2 (09:00→10:01)
[2018-04-01] MEDS: NICOTINE 14 MG/24 HOUR PATCH TD SCH (10:01)
[2018-04-01 11:31] VITALS: BP 108/55
[2018-04-01] MEDS: CefTRIAXone SODIUM 1 GM in DEXTROSE 5%-WATER 10 ML IV SCH (12:43)
[2018-04-01 16:08] VITALS: BP 103/60
[2018-04-01] MEDS ORDERED: ALBUTEROL SULFATE HFA 90 MCG/PUFF 8 GM INHALER IH PRN (18:45)
[2018-04-01] MEDS: LEVOFLOXACIN 250 MG TABLET PO SCH (19:33)
[2018-04-01 20:03] VITALS: BP 102/56
[2018-04-02 00:28] VITALS: BP 96/52
[2018-04-02] MEDS: OxyCODONE HCL/ACETAMINOPHEN 5-325 MG TABLET PO PRN (01:42)
[2018-04-02] MEDS: ALBUTEROL SULFATE 2.5 MG/0.5 ML NEB SOLUTION NEB PRN ×2 (02:26→09:46)
[2018-04-02] MEDS: IPRATROPIUM BROMIDE 0.5 MG/2.5 ML NEB SOLUTION NEB PRN ×2 (02:26→09:46)
[2018-04-02 04:41] VITALS: BP 129/54
[2018-04-02 07:38] VITALS: BP 100/63
[2018-04-02] MEDS: LEVOFLOXACIN 250 MG TABLET PO SCH (08:27)
[2018-04-02] MEDS: NICOTINE 14 MG/24 HOUR PATCH TD SCH (08:27)
[2018-04-02] MEDS: PANTOPRAZOLE SODIUM 40 MG DR TABLET PO SCH (08:27)
[2018-04-02] MEDS: HEPARIN SODIUM,PORCINE 5,000 UNITS/ML VIAL SQ SCH (08:28)
[2018-04-02] MEDS: DOCUSATE SODIUM 100 MG CAPSULE PO SCH (09:00)
[2018-04-02] MEDS: BUDESONIDE 0.5 MG/2 ML NEB SOLUTION NEB SCH (09:46)
[2018-04-02 11:01] VITALS: BP 108/55
== END 2018-04-02 14:30 | disposition home or self-care (01) | DRG 871 ==
LOC: EMS 01:08 → 5N 02:00
PROVIDERS: ADMIT Internal Medicine; ATTEND Internal Medicine
DX: A41.9 Sepsis, unspecified organism (principal); E43 Unspecified severe protein-calorie malnutrition; J96.21 Acute and chronic respiratory failure with hypoxia; N17.9 Acute kidney failure, unspecified; R64 Cachexia; Z68.1 Body mass index [BMI] 19.9 or less, adult; I50.9 Heart failure, unspecified; I11.0 Hypertensive heart disease with heart failure; Z86.74 Personal history of sudden cardiac arrest; Z99.81 Dependence on supplemental oxygen; J44.9 Chronic obstructive pulmonary disease, unspecified; J45.909 Unspecified asthma, uncomplicated; F17.210 Nicotine dependence, cigarettes, uncomplicated; F12.90 Cannabis use, unspecified, uncomplicated; I25.10 Atherosclerotic heart disease of native coronary artery without angina pectoris; B96.4 Proteus (mirabilis) (morganii) as the cause of diseases classified elsewhere; Z79.51 Long term (current) use of inhaled steroids; Z79.899 Other long term (current) drug therapy; Z79.1 Long term (current) use of non-steroidal anti-inflammatories (NSAID); Z71.6 Tobacco abuse counseling; Z91.02 Food additives allergy status; I25.2 Old myocardial infarction; Z82.49 Family history of ischemic heart disease and other diseases of the circulatory system; Z82.5 Family history of asthma and other chronic lower respiratory diseases
CPT/HCPCS: 71046; 71260; 83735; 84145; 86480; 87015; 87040; 87070; 87205; 87206; 87389; 87449; 87899; 93005; 94640; 96365; 96375; 97116; 97162; 97166; 97530; 97535; 99285; J0456; J0690; J0696; J1644; J1956; J3535; J7030; J7060